=== PATIENT | male | born 1995 | race Caucasian/White ===

== ENCOUNTER 2019-04-14 09:57 | Emergency (ER) | payer OTHER ==
[~2019-04-14] VITALS: Ht 190.5 cm; Wt 124.7 kg
[2019-04-14] MEDS ORDERED: TOBRAMYCIN 5 ML5 M1 OPH (10:21)
== END 2019-04-14 10:23 | disposition home or self-care (01) ==
LOC: ED 09:57
DX: H10.9 Unspecified conjunctivitis (principal)